=== PATIENT | female | born 1950 | race Caucasian/White ===

== ENCOUNTER → 2019-07-05 | Outpatient (CLI) | payer OTHER ==
[~2019-07-05] MED LIST: ACYCLOVIR 800800 M1 PO; AMBIEN 10 MG TA10 MG PO; ASPIRIN EC81 M1 PO; DEXILANT60 MG; FLECAINIDE ACE100 MG PO; HYDROXYCHLOROQ200 M1; LEVOTHROID; LOPRESSOR PO; PRAVACHOL40 MG; PREDNISONE 5 MG5 M1 PO; PROAIR HFA8.5 GM; QVAR HFA 440 MCG/UN1; TOPAMAX25 M1 PO; TOPROL XL25 MG; ULTRAM 50MG TAB50 MG; VITAMIN C PO
== END ==
LOC: SJCVCIMAG 07:43
DX: I47.1 Supraventricular tachycardia (principal); R07.9 Chest pain, unspecified; I10 Essential (primary) hypertension; M19.90 Unspecified osteoarthritis, unspecified site; J45.909 Unspecified asthma, uncomplicated; K21.9 Gastro-esophageal reflux disease without esophagitis; E03.9 Hypothyroidism, unspecified; E11.9 Type 2 diabetes mellitus without complications; Z90.49 Acquired absence of other specified parts of digestive tract; Z90.710 Acquired absence of both cervix and uterus; Z79.899 Other long term (current) drug therapy

== ENCOUNTER → 2020-07-07 | Outpatient (CLI) | payer OTHER | LOC: SJCVCIMAG 08:17 | PROVIDERS: ATTEND Internal Medicine Cardiovascular Disease | DX: I08.1 Rheumatic disorders of both mitral and tricuspid valves (principal); R94.31 Abnormal electrocardiogram [ECG] [EKG]; R00.1 Bradycardia, unspecified; R07.9 Chest pain, unspecified; I47.1 Supraventricular tachycardia; I10 Essential (primary) hypertension; K21.9 Gastro-esophageal reflux disease without esophagitis; R60.9 Edema, unspecified; J45.909 Unspecified asthma, uncomplicated; E11.9 Type 2 diabetes mellitus without complications; E03.9 Hypothyroidism, unspecified; Z90.49 Acquired absence of other specified parts of digestive tract; Z90.710 Acquired absence of both cervix and uterus; Z98.890 Other specified postprocedural states; Z88.0 Allergy status to penicillin; Z88.8 Allergy status to other drugs, medicaments and biological substances; Z79.899 Other long term (current) drug therapy ==